=== PATIENT | male | born 1990 | race Two or more races ===

== ENCOUNTER 2024-10-21 05:04 | Emergency (ER) | payer OTHER ==
[~2024-10-21] VITALS: Ht 167.6 cm; Wt 75.7 kg
[2024-10-21 05:16] VITALS: BP 123/89; O2SAT 97
[2024-10-21] MEDS ORDERED: DIPHENHYDRAMINE HCL 12.5 MG/5 ML BLIST.PACK PO STA (07:48)
[2024-10-21] MEDS ORDERED: ACETAMINOPHEN 500 MG GEL..CAP PO STA (07:48)
[2024-10-21 08:21] LABS: URINE APPEARANCE Clear; URINE BILIRRUBIN Negative (NEGATIVE); URINE BLOOD Negative; URINE COLOR Yellow; URINE GLUCOSE Negative (NEGATIVE); URINE KETONE Negative (NEGATIVE); URINE LEUKOCYTE Negative; URINE NITRATE Negative; URINE PROTEIN Negative (NEGATIVE); URINE UROBILINOGEN 0.2 E.U./dl
[2024-10-21 08:25] LABS: URINE BACTERIA 15.5 uL (0.0-1933); URINE EPITHELIAL CELLS 2.3 uL (0.0-38.8); URINE RBC 3.0 uL (0.0-20.8); URINE WBC 10.7 uL (0.0-23.2)
[2024-10-21 08:29] LABS: URINE CAST 0.58 uL (0.0-1.40)
[2024-10-21 08:42] LABS: COVID-19 AG NEGATIVE (NEGATIVE)
[2024-10-21 08:49] LABS: BASO % 1.0 % (0.1-1.2); EOS # 0.34 (0.04-0.54); EOS % 3.6 % (0.7-7.0); LYMPH # 1.97 (1.18-3.74); LYMPH % 21.0 % (19.3-53.1); MEAN PLATELET VOLUME 11.50 fl (9.4-12.4); MONO # 1.14 (0.24-0.82); NEUT # 5.82 (1.56-6.13); NEUT % 61.9 % (34.0-71.1); RED CELL DISTRIBUTION WIDTH 12.5 % (11.6-14.4)
[2024-10-21 08:51] LABS: MONO % 12.1 % (4.7-12.5)
== END 2024-10-21 09:53 | disposition home or self-care (01) ==
LOC: ER 05:04
PROVIDERS: General Practice
DX: B34.9 Viral infection, unspecified (principal); Z20.822 Contact with and (suspected) exposure to COVID-19; Z91.011 Allergy to milk products